=== PATIENT | male | born 1990 | race Caucasian/White ===

== ENCOUNTER → 2016-06-10 | Outpatient (CLI) | payer MEDICAID ==
[~2016-06-10] MED LIST: BACTRIM DS TAB1 EACH PO; GOOD SENSE ASPI81 M1 PO; INSULIN N (N100 U/ML SQ; INSULIN R (N100 U/ML SQ; METFOMIN HYDRO850 MG PO; ZESTRIL2.5 M1 PO
== END ==
LOC: LAB 07:46
DX: B37.0 Candidal stomatitis (principal); R73.9 Hyperglycemia, unspecified; E66.01 Morbid (severe) obesity due to excess calories

== ENCOUNTER 2016-11-16 23:13 | Emergency (ER) | payer MEDICAID ==
[~2016-11-16] VITALS: Ht 188 cm; Wt 180.9 kg
[2016-11-17] MEDS ORDERED: INSULIN N (N100 U/ML SQ ×2 (00:32)
[2016-11-17] MEDS ORDERED: INSULIN R (N100 U/ML SQ (00:33)
[2016-11-17] MEDS ORDERED: GOOD SENSE ASPI81 M1 PO (00:34)
[2016-11-17] MEDS ORDERED: METFOMIN HYDRO850 MG PO (00:34)
[2016-11-17] MEDS ORDERED: ZESTRIL2.5 M1 PO (00:34)
[2016-11-17] MEDS ORDERED: BACTRIM DS TAB1 EACH PO (01:13)
[2016-11-17 01:24] VITALS: BP 102/70
== END 2016-11-17 01:24 | disposition home or self-care (01) ==
LOC: ED 23:13
DX: L02.416 Cutaneous abscess of left lower limb (principal); E11.9 Type 2 diabetes mellitus without complications; Z79.4 Long term (current) use of insulin
CPT/HCPCS: 90715